=== PATIENT | female | born 1955 | race Caucasian/White ===

== ENCOUNTER 2020-03-27 11:55 | Emergency (ER) | payer MEDICAID, SELFPAY ==
[2020-03-27 11:57] VITALS: BP 146/87; PULSE 70; RESP 13; O2SAT 91
[2020-03-27 12:01] VITALS: BP 154/90; PULSE 71; RESP 18; TEMP 37; O2SAT 97; BMI 56.0
--- NOTE | 2020-03-27 12:04 | EKG12_ITS ---
Test Reason : GEN ILLNESS Blood Pressure : / mmHG Vent. Rate : 069 BPM Atrial Rate : 069 BPM P-R Int : 168 ms QRS Dur : 096 ms QT Int : 428 ms P-R-T Axes : 021 005 000 degrees QTc Int : 458 ms Normal sinus rhythm Normal ECG Confirmed by REUBEN HOBBS, JUAN ANTONIO ([id number]), deputy editor in chief MJ HUTCHINSON ([id number]) on 03/28/2020 11:16:47 AM Referred By: SIMONE Confirmed By:JUAN ANTONIO ALEXIS MD
--- NOTE | 2020-03-27 12:06 | ED.DCSUM_ITS ---
History of Present Illness Chief Complaint: General Illness Informant: Patient Onset: Today Context: Sudden Onset Timing: Intermittent Current Severity: Moderate Maximum Severity: Moderate Narrative: The patient is a 64-year-old female with history of hypertension that presents to the emergency department after near syncopal episode. Patient states she was in her normal state of health. She states over the past 3 days, she has been dealing with a lot more stress at home. She states that she was driving into work today. She started to get an overwhelming sensation of warmth and felt as if she was going to pass out. She states that she stopped and was starting to feel better, but then it returned. She called squad and was brought in. She states she is been having some intermittent chest pain, but states that is not atypical for her. She states she did have a nuclear stress test less than a year ago which was normal. She denies any fevers or chills. She denies nausea or vomiting. She denies orthopnea or other symptoms. Prior similar symptoms: Yes Recent Illness/Hospitalization: No Past Medical History - Allergies and Home Meds Allergies/Adverse Reactions: Allergies azithromycin Allergy (Verified 03/27/20 12:01) PT UNSURE OF REACTION epinephrine Allergy (Verified 03/27/20 12:00) Chest tightness morphine Allergy (Verified 03/27/20 12:00) Shortness of breath Penicillins Allergy (Verified 03/27/20 12:01) PT UNSURE OF REACTION acetaminophen [From [place]] Adverse Reaction (Verified 03/27/20 12:00) NEEDS FOLLOW-UP hydrocodone [From [place]] Adverse Reaction (Verified 03/27/20 12:00) NEEDS FOLLOW-UP oxycodone [From [place]] Adverse Reaction (Verified 03/27/20 12:00) NEEDS FOLLOW-UP Primary Care Physician: Juliette Gautam MD [Primary Care Provider] - Prior records reviewed: Yes Past Medical History: - - Hypertension, GERD Surgical History: noncontributory Review of Systems General: Denies: Chills, Fever, Sweats Eyes: Denies: Visual changes - bilaterally, Diplopia ENT: Denies: Rhinorrhea, Sore throat Cardiovascular: Denies: Chest pain, Palpitations Respiratory: Denies: Dyspnea, Cough, Dyspnea on exertion Gastrointestinal: Denies: Abdominal pain, Nausea, Vomiting, Diarrhea, Melena, Hematochezia Genitourinary: Denies: Dysuria, Hematuria, Frequency Musculoskeletal: Denies: Back pain, Extremity Pain Skin: Denies: Rash, Wounds Neurological: Denies: Headache, Weakness, Numbness Physical Exam Inital Vital Signs reviewed: Yes General: Well nourished, Well developed, No Acute Distress Head: Normocephalic, Atraumatic Eyes: Perrl, EOMI ENT: Moist mucous membranes, No rhinorrhea Neck: Supple, Nontender Cardiovascular: Regular rate, Regular rhythm, No murmurs Respiratory: No distress, CTA bilaterally, Chest nontender Abdomen: Soft, Nontender, Nondistended, Normal bowel sounds Back: Nontender, Normal Inspection Extremities: Nontender, No edema Skin: Normal color, No rash Neurological: Alert, Oriented x3, Cranial nerves II-XII grossly intact, Normal Strength, Normal Sensation Psychological: Normal affect, Normal Mood Diagnostic/Tx/Re-eval Clinical Impression(s) from Imaging Studies Chest X-Ray 03/27/20 12:25 IMPRESSION: Borderline cardiomegaly. Electronically Signed: Chance Lavell, at 12:41 EDT , Service support , Abnormal Lab Results 03/27/20 03/27/20 12:15 12:15 WBC 6.3 RBC 4.45 Hgb 13.9 Hct 42.7 MCV 96.0 MCH 31.2 MCHC 32.6 RDW Std Deviation 46.3 H RDW Coeff of Juan 13.2 Plt Count 287 MPV 10.2 Immature Gran % (Auto) 0.200 Neut % (Auto) 58.7 Lymph % (Auto) 31.1 [place] % (Auto) 7.3 Eos % (Auto) 2.1 Baso % (Auto) 0.6 Absolute Neuts (auto) 3.7 Absolute Lymphs (auto) 1.97 Nucleated RBC % 0 Sodium 141 Potassium 3.9 Chloride 107 Carbon Dioxide 28.0 Anion Gap 6 BUN 20 H Creatinine 0.77 Estim Creat Clear Calc 63.74 Est GFR (MDRD) Af Amer 97 Est GFR (MDRD) Non-Af 80 BUN/Creatinine Ratio 25.9 H Glucose 85 Calcium 9.0 Total Bilirubin 0.40 AST 20 ALT 28 Alkaline Phosphatase 86 Troponin I < 0.015 Total Protein 6.9 Albumin 3.1 L Globulin 3.8 Albumin/Globulin Ratio 0.8 L - Medical Decision Making The patient presents after near syncopal episode with driving. She is not had any significant chest pain. She denies any fevers or chills. She had no neurologic complaints. She states that she just felt warm and like she was going to pass out. Metabolic work-up was pursued. EKG was sinus rhythm without acute ischemia. Cardiac enzymes, screening labs, and chest x-ray also unremarkable. On reevaluation, the patient is resting comfortably. She has had recent negative work-up for coronary vascular disease. I do feel that she is safe for outpatient follow-up and she is comfortable with this plan. Impression 1. Near syncope ED Disposition - Plan for ED Patient: Instructions: ED Near-Fainting Uncertain Cause Referrals: Juliette Gautam MD [Primary Care Provider] -
--- NOTE | 2020-03-27 12:06 | NURSING ---
NO OLD EKGS
[2020-03-27 12:24] LABS: Absolute Lymphocyte Count 1.97 X10^3/uL (0.83-4.51); Absolute Neutrophil Count 3.7 X10^3/uL (2.0-7.7); Basophil# 0.04 X10^3/uL; Basophil% 0.6 % (0-1); Eosinophil# 0.13 X10^3/uL; Eosinophils% 2.1 % (0-5); Hematocrit 42.7 % (37-47); Hemoglobin 13.9 g/dL (12.0-15.0); Lymphocyte # 1.97 X10^3/ul (4.0); Lymphocyte % 31.1 % (19-41); Mean Corp Hgb Conc 32.6 g/dL (32-36); Mean Corpuscular Hgb 31.2 pg (27.0-32.0); Mean Platelet Vol. 10.2 fl (6.2-12.0); Monocyte# 0.46 X10^3/uL; Monocyte% 7.3 % (0-10); NRBC Flagged by Analyzer 0 % (0-5); Neutrophil # 3.72 X10^3/uL (2.7-7.7); Neutrophil % 58.7 % (47-70); Platelet Count 287 K/mm3 (150-450); RBC Distribution Width CV 13.2 % (11.6-14.6); RBC Distribution Width SD 46.3 fl (35.1-43.9); Red Blood Count 4.45 M/mm3 (4.2-5.4); White Blood Count 6.3 K/mm3 (4.4-11.0)
--- NOTE | 2020-03-27 12:25 | RAD_ITS ---
STUDY: X-RAY CHEST REASON FOR EXAM: Female, 64 years old. [place] lightheaded and flushed while driving TECHNIQUE: Single AP portable view of the chest. COMPARISON: None. FINDINGS: EKG electrode are seen. The lungs are clear and expanded. There is no demonstrated pleural abnormality. There is borderline cardiomegaly. Normal mediastinum and [place]. Normal visualized pulmonary arteries. There is atherosclerotic tortuosity of the aortic arch and descending thoracic aorta. Normal visualized thoracic spine. There is degenerative osteoarthritis of the bilateral shoulders. There is no demonstrated abnormality of the visualized soft tissue structures of the upper abdomen. RAD/Chest 1 View (Portable) IMPRESSION: Borderline cardiomegaly. Electronically Signed: Chance Monte, at 12:41 EDT , Service support ,
[2020-03-27 12:44] LABS: ALB/GLOB Ratio 0.8 RATIO (0.9-2.4); AST(SGOT) 20 U/L (15-37); Alanine Aminotransfer ALT/SGPT 28 U/L (13-56); Albumin, Serum 3.1 g/dL (3.2-5.0); Alkaline Phosphatase 86 U/L (45-117); Anion Gap 6 (5-15); BUN 20 mg/dL (7-18); BUN/Creat Ratio 25.9 RATIO (10-20); Chloride 107 mmol/L (98-107); Creatinine, Serum 0.77 mg/dL (0.55-1.02); EST Glomerular Filtration Rate 80 mL/min (>60); Est Glom Filt Rate - Afr Amer 97 mL/min (>60); Estimated Creatinine Clearance 63.74 ml/min; Globulin 3.8 g/dL (2.2-4.2); Glucose 85 mg/dL (74-106); Potassium 3.9 mmol/L (3.5-5.1); Protein, Total 6.9 g/dL (6.4-8.2); Sodium Level 141 mmol/L (136-145)
[2020-03-27 13:31] VITALS: BP 148/85; PULSE 69; RESP 13; O2SAT 96
[2020-03-27] MEDS: Mag Hydrox/Al Hydrox/Simeth 30 ML UDC PO (13:39)
== END 2020-03-27 13:46 | disposition home or self-care (01) ==
LOC: ED 13:01
PROVIDERS: Emergency Provider Emergency Medicine; PCP Internal Medicine
DX: R55 Syncope and collapse (principal); I10 Essential (primary) hypertension; K21.9 Gastro-esophageal reflux disease without esophagitis; Z79.899 Other long term (current) drug therapy
CPT/HCPCS: 71045; 80053; 84484; 85025; 93005; 96360; 99285; J7030; A4216